=== PATIENT | female | born 2000 | race Caucasian/White ===

== ENCOUNTER 2020-05-15 22:20 | Emergency (ER) | payer OTHER ==
[~2020-05-15] VITALS: Ht 165.1 cm; Wt 59.0 kg
[2020-05-16 01:36] LABS: EOSINOPHILS % 0.2 % (0.0-5.0); HEMOGLOBIN. 11.6 g/dL (12.0-16.0); LYMPHOCYTES % 26.8 % (20.0-50.0); MEAN CORPUSCULAR HEMOGLOBIN 19.6 pg (28.0-32.0); MEAN CORPUSCULAR VOLUME 62.6 fL (81.0-99.0); MEAN PLATELET VOLUME 9.9 fl (7.4-10.4); MONOCYTES % 5.5 % (2.0-8.0); NEUTROPHILS % 66.5 % (40.0-76.0); PLATELET 250 x1000/uL (130-400); RED BLOOD CELL COUNT 5.92 mill/uL (4.2-5.4); RED CELL DISTRIBUTION WIDTH 19.4 % (11.6-14.6)
[2020-05-16 01:40] LABS: PLATELET ESTIMATE NORMAL
[2020-05-16 01:42] LABS: CHLORIDE 106 mEq/L (98-107)
[2020-05-16 01:47] LABS: CLARITY URINE CLEAR (CLEAR); COLOR URINE YELLOW (YELLOW); KETONES URINE NEGATIVE (NEGATIVE); LEUKOCYTE ESTERASE URINE NEGATIVE (NEGATIVE); NITRITE URINE NEGATIVE (NEGATIVE); OCCULT BLOOD URINE 1+ (NEGATIVE); PH URINE 5.5 (4.5-8.0); PROTEIN URINE NEGATIVE (NEGATIVE); SPECIFIC GRAVITY URINE 1.008 (1.005-1.030); UROBILINOGEN URINE 0.2 E.U./dL (0.2-1.0)
[2020-05-16] MEDS ORDERED: KETOROLAC 15MG/ML VIAL IV ONE (02:00)
[2020-05-16 03:42] VITALS: BP 120/89
== END 2020-05-16 03:44 | disposition home or self-care (01) ==
LOC: ER 22:20
DX: R10.13 Epigastric pain (principal); M79.18 Myalgia, other site; R06.02 Shortness of breath; J45.909 Unspecified asthma, uncomplicated; Z87.01 Personal history of pneumonia (recurrent)
CPT/HCPCS: 36415; 71045; 80053; 81003; 81025; 83690; 85025; 93005; 96374; 99285; J1885